=== PATIENT | male | born 1995 | race Caucasian/White ===

== ENCOUNTER 2017-04-16 16:30 | Emergency (ER) | payer OTHER ==
[~2017-04-16] VITALS: Ht 182.9 cm; Wt 81.8 kg
[2017-04-16 16:39] VITALS: BP 135/75; PULSE 93; TEMP 99.2
[2017-04-16] MEDS ORDERED: ALLEGRA 60MG TA60 MG PO (16:43)
== END 2017-04-16 18:14 | disposition home or self-care (01) ==
LOC: COL.ER 16:30
DX: S61.512A Laceration without foreign body of left wrist, initial encounter (principal); W25.XXXA Contact with sharp glass, initial encounter; Y92.89 Other specified places as the place of occurrence of the external cause